=== PATIENT | male | born 1990 | race Caucasian/White ===

== ENCOUNTER 2024-10-31 07:24 | Outpatient (CLI) | payer OTHER | END 2024-10-31 07:25 | disposition home or self-care (01) | LOC: NM 07:24 | PROVIDERS: ATTEND Internal Medicine | DX: K21.9 Gastro-esophageal reflux disease without esophagitis (principal); R13.10 Dysphagia, unspecified; R19.8 Other specified symptoms and signs involving the digestive system and abdomen | CPT/HCPCS: 78264; A9541 ==